=== PATIENT | female | born 1960 | race Hispanic/Latino ===

== ENCOUNTER 2018-11-21 18:54 | Emergency (ER) | payer OTHER ==
[2018-11-21] MEDS ORDERED: DiphenhydrAMINE HCL 50 MG/ML VIAL ONE (19:21)
[2018-11-21] MEDS ORDERED: FAMOTIDINE/PF 20 MG/2 ML VIAL IV ONE (19:22)
[2018-11-21] MEDS ORDERED: ONDANSETRON HCL 4 MG/2 ML VIAL ONE (19:22)
[2018-11-21 19:31] LABS: BASOPHILS % (AUTO) 0.5 % (0.0-5.0); EOSINOPHILS % (AUTO) 0.7 % (0.0-8.0); HEMATOCRIT 39.8 % (36-48); LYMPHOCYTES % (AUTO) 13.9 % (21.0-51.0); MEAN CORPUSCULAR HEMOGLOBIN 27.4 pg (27.0-33.0); MEAN CORPUSCULAR HGB CONC 33.2 g/dL (32.0-36.0); MEAN CORPUSCULAR VOLUME 82.6 fL (79-99); MONOCYTES % (AUTO) 4.8 % (3.0-13.0); NEUTROPHILS % (AUTO) 80.1 % (40.0-77.0); NUCLEATED RED BLOOD CELLS 0.1 % (0.0-0.19); PLATELET COUNT (AUTO) 274 K/uL (130-400); RED BLOOD CELL COUNT(AUTO) 4.82 MIL/uL (4.00-5.50); RED CELL DISTRIBUTION WIDTH 14.2 % (11.0-15.5); WHITE BLOOD COUNT (AUTO) 15.3 K/uL (4.8-10.8)
[2018-11-21 20:26] LABS: CREATININE 0.6 mg/dL (0.5-1.5); POTASSIUM 3.3 mmol/L (3.5-5.1)
[2018-11-21] MEDS ORDERED: METHYLPREDNISOLONE SOD SUCC 125MG/2ML VIAL ONE (20:35)
[2018-11-21] MEDS ORDERED: KETOROLAC TROMETHAMINE 30MG/ML ONE (20:54)
== END 2018-11-21 22:10 | disposition home or self-care (01) ==
LOC: EDH 18:54
DX: T63.441A Toxic effect of venom of bees, accidental (unintentional), initial encounter (principal); L29.8 Other pruritus; R22.0 Localized swelling, mass and lump, head; Z91.030 Bee allergy status; Y92.89 Other specified places as the place of occurrence of the external cause
CPT/HCPCS: 36415; 70450; 80048; 82948; 85025; 96374; 96375; 99284; J1200; J1885; J2405; J2930; J3490

== ENCOUNTER 2018-12-25 17:43 | Emergency (ER) | payer OTHER ==
[2018-12-25 17:56] LABS: EOSINOPHILS % (AUTO) 0.7 % (0.0-8.0); HEMATOCRIT 41.4 % (36-48); LYMPHOCYTES % (AUTO) 23.9 % (21.0-51.0); MEAN CORPUSCULAR HEMOGLOBIN 27.4 pg (27.0-33.0); MEAN CORPUSCULAR HGB CONC 33.5 g/dL (32.0-36.0); MONOCYTES % (AUTO) 7.4 % (3.0-13.0); PLATELET COUNT (AUTO) 313 K/uL (130-400); RED BLOOD CELL COUNT(AUTO) 5.05 MIL/uL (4.00-5.50); RED CELL DISTRIBUTION WIDTH 14.2 % (11.0-15.5); WHITE BLOOD COUNT (AUTO) 7.1 K/uL (4.8-10.8)
[2018-12-25 18:08] LABS: CREATININE 0.8 mg/dL (0.5-1.5); POTASSIUM 3.5 mmol/L (3.5-5.1)
[2018-12-25 18:13] LABS: ALBUMIN 4.2 g/dL (3.5-5.0); BILIRUBIN,TOTAL 0.8 mg/dL (0.2-1.0)
[2018-12-25] MEDS ORDERED: ONDANSETRON HCL 4 MG/2 ML VIAL ONE (18:17)
== END 2018-12-25 20:10 | disposition home or self-care (01) ==
LOC: EDH 17:43
DX: F41.1 Generalized anxiety disorder (principal); R51 Headache; R42 Dizziness and giddiness
CPT/HCPCS: 36415; 80053; 84484; 85025; 93005; 96361; 96374; 99285; J2405

== ENCOUNTER 2019-03-21 10:57 | Emergency (ER) | payer OTHER | END 2019-03-21 11:30 | disposition home or self-care (01) | LOC: EDH 10:57 | DX: R42 Dizziness and giddiness (principal); H65.92 Unspecified nonsuppurative otitis media, left ear | CPT/HCPCS: 99281 ==